=== PATIENT | female | born 1955 | race Caucasian/White ===

== ENCOUNTER 2020-10-16 06:38 | Outpatient (REF) | payer MEDICARE, SELFPAY ==
[2020-10-16 12:21] LABS: Alanine Aminotransferase 34 U/L (0-31); Anion Gap 15 (12-20); Aspartate Amino Transferase 34 U/L (5-31); Blood Urea Nitrogen 14 mg/dL (9-16); Calcium 9.5 mg/dL (8.4-10.2); Carbon Dioxide 29 mmol/L (22-29); Chloride 103 mmol/L (96-108); Cholesterol 268 mg/dL; Estimated Glomerular Filt Rate > 60; Glucose Fasting 89 mg/dL (60-99); HDL Cholesterol 53 mg/dL; LDL Cholesterol Calculated 194 mg/dl; Potassium 5.1 mmol/l (3.3-5.1); Sodium 142 mmol/L (135-145); Triglycerides 109 mg/dL
== END 2020-10-16 06:39 | disposition home or self-care (01) ==
LOC: HO.HMGCLDS 06:38
PROVIDERS: PCP Internal Medicine; Visit Provider Internal Medicine
DX: Z78.0 Asymptomatic menopausal state (principal); I10 Essential (primary) hypertension
CPT/HCPCS: 80048; 80061; 82306; 84450; 84460

== ENCOUNTER 2020-12-22 09:41 | Outpatient (REF) | payer MEDICARE, SELFPAY ==
--- NOTE | 2020-12-22 09:43 | MM_ITS ---
EXAMINATION: MM SCREENING DIGITAL BREAST TOMOSYNTHESIS, BILATERAL CLINICAL INFORMATION: Screening. Asymptomatic. The lifetime risk of breast cancer based on the Tyrer-Cuzick Model is 6%. COMPARISON: Outside mammography: 10/16/2019, 08/23/2018, 04/27/2016, 04/14/2016 ([facility]) TECHNIQUE: Digital breast tomosynthesis is performed in both the craniocaudal and mediolateral oblique views along with computer-aided detection (CAD). Synthesized 2D images are generated from the tomosynthesis. FINDINGS: There are scattered areas of fibroglandular density (ACR BI-RADS breast composition Category b). Parenchymal pattern is similar to prior studies. There is no developing density or interval mass or architectural abnormality or abnormal calcifications. The axilla and skin contours are unremarkable. Small stable asymmetric density mid outer left breast on CC view is similar to prior exams dating back to 2016. No correlate on MLO view. Small oval asymmetric density central lower right breast in MLO view also stable. MM/MM tomosynthesis screening BI IMPRESSION: No significant changes from previous outside mammography. ASSESSMENT: BI-RADS 2: Benign RECOMMENDATION: Routine annual mammography screening. This patient's information was entered into a reminder system with a target due date for their next mammogram.
== END 2020-12-22 09:42 | disposition home or self-care (01) ==
LOC: HO.MAMMO 09:41
PROVIDERS: PCP Internal Medicine; Visit Provider Internal Medicine
DX: Z12.31 Encounter for screening mammogram for malignant neoplasm of breast (principal)
CPT/HCPCS: 77063; 77067

== ENCOUNTER 2021-04-16 06:38 | Outpatient (REF) | payer MEDICARE, SELFPAY ==
[2021-04-16 11:22] LABS: MANUAL DIFF FLAG NO
[2021-04-16 11:40] LABS: Basophils Absolute Auto 0.1 X10*3/uL (0.0-0.2); Basophils Percent Auto 0.6 % (0-2); Eosinophils Absolute Auto 0.4 X10*3/uL (0.0-0.4); Eosinophils Percent Auto 4.5 % (0-4); Hemoglobin 13.8 g/dl (12.0-16.0); Imm Gran Abs Auto 0.02 X10*3/uL (0.00-0.03); Imm Gran Pct Auto 0.2 % (0.0-0.4); Lymphocytes Absolute Auto 1.9 X10*3/uL (1.2-4.9); Mean Corpuscular HGB Conc 32.1 g/dl (31.0-35.0); Mean Corpuscular Hemoglobin 30.9 pg (27.0-33.0); Mean Corpuscular Volume 96.4 fL (80-98); Mean Platelet Volume 10.8 fL (9.4-12.3); Monocytes Absolute Auto 0.8 X10*3/uL (0.1-1.2); Monocytes Percent Auto 9.1 % (2-11); Neutrophils Absolute Auto 5.2 X10*3/uL (2.0-8.3); Neutrophils Percent Auto 62.6 % (45-73); Platelet Count 313 X10*3/uL (160-400); Red Blood Count 4.46 X10*6/uL (4.20-5.50); Red Cell Distribution Width 11.9 % (11.0-16.0); White Blood Count 8.3 X10*3/uL (4.8-10.8)
[2021-04-16 12:23] LABS: Alanine Aminotransferase 17 U/L (0-31); Anion Gap 13 (12-20); Aspartate Amino Transferase 21 U/L (5-31); Blood Urea Nitrogen 16 mg/dL (9-16); Calcium 9.7 mg/dL (8.4-10.2); Carbon Dioxide 26 mmol/L (22-29); Chloride 109 mmol/L (96-108); Cholesterol 204 mg/dL; Estimated Glomerular Filt Rate > 60; Glucose Fasting 84 mg/dL (60-99); HDL Cholesterol 58 mg/dL; LDL Cholesterol Calculated 129 mg/dl; Potassium 5.1 mmol/L (3.3-5.1); Sodium 143 mmol/L (135-145); Triglycerides 89 mg/dL
[2021-04-16 12:46] LABS: TSH reflex Free T4 4.05 uIU/mL (0.32-4.0); Vitamin D 25-OH Total 61.9 ng/mL (>30)
[2021-04-16 14:28] LABS: Free T4 (Free Thyroxine) 0.88 ng/dL (0.71-1.85)
== END 2021-04-16 06:39 | disposition home or self-care (01) ==
LOC: HO.HMGCLDS 06:38
PROVIDERS: PCP Internal Medicine; Visit Provider Internal Medicine
DX: E78.5 Hyperlipidemia, unspecified (principal); I10 Essential (primary) hypertension; R00.2 Palpitations; R42 Dizziness and giddiness; Z78.0 Asymptomatic menopausal state
CPT/HCPCS: 36415; 80048; 80061; 82306; 84439; 84443; 84450; 84460; 85025

== ENCOUNTER 2021-10-01 07:07 | Outpatient (REF) | payer MEDICARE, SELFPAY ==
[2021-10-01 12:08] LABS: Alanine Aminotransferase 25 U/L (0-31); Aspartate Amino Transferase 30 U/L (5-31); Cholesterol 181 mg/dL; HDL Cholesterol 54 mg/dL; LDL Cholesterol Calculated 113 mg/dl; Triglycerides 73 mg/dL
== END 2021-10-01 07:08 | disposition home or self-care (01) ==
LOC: HO.HMGCLDS 07:07
PROVIDERS: PCP Internal Medicine; Visit Provider Internal Medicine
DX: E78.5 Hyperlipidemia, unspecified (principal); I10 Essential (primary) hypertension
CPT/HCPCS: 36415; 80061; 84450; 84460

== ENCOUNTER 2022-02-08 08:38 | Outpatient (REF) | payer MEDICARE, SELFPAY ==
--- NOTE | ~2022-02-08 | MM_ITS ---
EXAMINATION: MM SCREENING DIGITAL BREAST TOMOSYNTHESIS, BILATERAL CLINICAL INFORMATION: Screening. Asymptomatic. The lifetime risk of breast cancer based on the Tyrer-Cuzick Model is 6%. COMPARISON: Mammography: 12/22/2020 and outside exams 10/16/2019, 08/23/2018, 04/14/2016 ([facility]). TECHNIQUE: Digital breast tomosynthesis is performed in both the craniocaudal and mediolateral oblique views along with computer-aided detection (CAD). Synthesized 2D images are generated from the tomosynthesis. FINDINGS: There are scattered areas of fibroglandular density (ACR BI-RADS breast composition Category b). There are no significant masses, abnormal calcifications, or other abnormalities. Scattered bilateral asymmetries are stable. There are scattered shifting fibroglandular parenchymal densities overall similar to prior studies. No developing density or interval architectural abnormality. MM/MM tomosynthesis screening BI IMPRESSION: No significant changes from prior exams. ASSESSMENT: BI-RADS 2: Benign RECOMMENDATION: Routine annual mammography screening. This patient's information was entered into a reminder system with a target due date for their next mammogram.
== END 2022-02-08 08:39 | disposition home or self-care (01) ==
LOC: HO.MAMMO 08:38
PROVIDERS: Visit Provider Internal Medicine
DX: Z12.31 Encounter for screening mammogram for malignant neoplasm of breast (principal)
CPT/HCPCS: 77063; 77067

== ENCOUNTER 2022-04-01 06:37 | Outpatient (REF) | payer MEDICARE, SELFPAY ==
[2022-04-01 11:10] LABS: MANUAL DIFF FLAG NO
[2022-04-01 11:20] LABS: Basophils Absolute Auto 0.1 X10*3/uL (0.0-0.2); Basophils Percent Auto 0.7 % (0-2); Eosinophils Absolute Auto 0.3 X10*3/uL (0.0-0.4); Eosinophils Percent Auto 4.2 % (0-4); Hemoglobin 13.9 g/dl (12.0-16.0); Imm Gran Abs Auto 0.02 X10*3/uL (0.00-0.03); Imm Gran Pct Auto 0.3 % (0.0-0.4); Lymphocytes Absolute Auto 1.9 X10*3/uL (1.2-4.9); Lymphocytes Percent Auto 25.5 % (20-40); Mean Corpuscular HGB Conc 32.3 g/dl (31.0-35.0); Mean Corpuscular Volume 95.8 fL (80.0-98.0); Mean Platelet Volume 10.7 fL (9.4-12.3); Monocytes Absolute Auto 0.7 X10*3/uL (0.1-1.2); Monocytes Percent Auto 9.5 % (2-11); Neutrophils Absolute Auto 4.5 x10*3/uL (2.0-8.3); Neutrophils Percent Auto 59.8 % (45-73); Platelet Count 341 X10*3/uL (160-400); Red Blood Count 4.49 X10*6/uL (4.20-5.50); Red Cell Distribution Width 11.8 % (11.0-16.0); White Blood Count 7.5 X10*3/uL (4.8-10.8)
[2022-04-01 12:03] LABS: Vitamin D 25-OH Total 57.4 ng/mL (>30)
[2022-04-01 12:07] LABS: Alanine Aminotransferase 13 U/L (0-31); Anion Gap 12 (12-20); Aspartate Amino Transferase 19 U/L (5-31); Blood Urea Nitrogen 14 mg/dL (9-16); Calcium 9.8 mg/dL (8.4-10.2); Carbon Dioxide 27 mmol/L (22-29); Chloride 106 mmol/L (96-108); Cholesterol 187 mg/dL; Estimated Glomerular Filt Rate > 60; Glucose Fasting 91 mg/dL (60-99); HDL Cholesterol 53 mg/dL; LDL Cholesterol Calculated 118 mg/dl; Potassium 4.6 mmol/L (3.3-5.1); Sodium 140 mmol/L (135-145); Triglycerides 83 mg/dL
== END 2022-04-01 06:38 | disposition home or self-care (01) ==
LOC: HO.HMGCLDS 06:37
PROVIDERS: Visit Provider Internal Medicine
DX: Z00.01 Encounter for general adult medical examination with abnormal findings (principal); I10 Essential (primary) hypertension; N95.9 Unspecified menopausal and perimenopausal disorder
CPT/HCPCS: 36415; 80048; 80061; 82306; 84450; 84460; 85025

== ENCOUNTER 2023-02-09 09:08 | Outpatient (REF) | payer MEDICARE, SELFPAY ==
--- NOTE | ~2023-02-09 | MM_ITS ---
EXAMINATION: MM SCREENING DIGITAL BREAST TOMOSYNTHESIS, BILATERAL CLINICAL INFORMATION: Screening. Asymptomatic. The lifetime risk of breast cancer based on the Tyrer-Cuzick Model is 6.3%. COMPARISON: Mammography: February 08, 2022 and studies dating back to April 14, 2016 TECHNIQUE: Digital breast tomosynthesis is performed in both the craniocaudal and mediolateral oblique views along with computer-aided detection (CAD). Synthesized 2D images are generated from the tomosynthesis. FINDINGS: There are scattered areas of fibroglandular density (ACR BI-RADS breast composition Category b). There are no new significant masses, abnormal calcifications, or other abnormalities. There are a few bilateral stable densities. MM/MM tomosynthesis screening BI IMPRESSION: No significant changes from prior exam. ASSESSMENT: BI-RADS 2: Benign RECOMMENDATION: Routine annual mammography screening. This patient's information was entered into a reminder system with a target due date for their next mammogram.
--- NOTE | ~2023-02-09 | MM_ITS ---
EXAMINATION: BONE DENSITOMETRY CLINICAL INDICATION: Asymptomatic menopausal state. COMPARISON: None (current study represents initial baseline exam). TECHNIQUE: Using a Neonode DXA System (software version: 13.1) manufactured by [employer], dual-energy x-ray absorptiometry was performed of the lumbar spine and left hip. The images are of good technical quality. Summary results are attached. FINDINGS: AP SPINE L1-L4 (excluding L3): The data of L1-L4 has been changed to exclude the L3 vertebral body, because degenerative changes at this level may cause overestimation of lumbar spine density. BMD 1.179 g/cm2, Z-score 1.4, T-score 0.1, normal. LEFT FEMUR, NECK: BMD 0.691 g/cm2, Z-score -1.1, T-score -2.5, osteoporosis. LEFT FEMUR, TOTAL: BMD 0.673 g/cm2, Z-score -1.5, T-score -2.7, osteoporosis. IDENTIFIED RISK FACTORS: Menopause. HISTORY OF FRACTURE: None listed. MEDICATIONS: Calcium. Vitamin D. MM/XR DEXA axial skeleton IMPRESSION: 1. DIAGNOSIS: Osteoporosis based on the lowest T-score value of -2.7 in the total femur applying World Health Organization criteria. 2. 10-YEAR FRACTURE RISK PREDICTION, FRAX: According to the guidelines, FRAX calculation should only be performed on patients in the osteopenia bone density category. Therefore, FRAX was not performed on this patient.? 3. Treatment Recommendations: NOF guidelines recommend consideration for treatment in postmenopausal women and men age 50 and older presenting with the following: -A hip or vertebral (clinical or morphometric) fracture. -T-score less than or equal to -2.5 at the femoral neck or spine after appropriate evaluation to exclude secondary causes. -Low bone mass at the hip or spine and a 10-year fracture probability by FRAX of greater than or equal to 3% for hip fracture or greater than or equal to 20% for major osteoporotic fracture based on the [place] adapted WHO algorithm. 4. Other Recommendations: All treatment decisions require clinical judgment and consideration of individual patient factors, including patient preferences, comorbidities, previous drug use, risk factors not captured in the FRAX model (e.g. frailty, falls, vitamin D deficiency, increased bone turnover, interval significant decline in bone density) and possible under or overestimation of fracture risk by FRAX. Additional medical evaluation for secondary cause of low bone mineral density may be appropriate. FUTURE SCAN RECOMMENDATION: People with diagnosed cases of osteoporosis or at high risk for fracture should have regular bone mineral density tests. For patients eligible for Medicare, routine testing is allowed once every 2 years. The testing frequency can be increased to one year for patients who have rapidly progressing disease, those who are receiving or discontinuing medical therapy to restore bone mass, or have additional risk factors.
== END 2023-02-09 09:09 | disposition home or self-care (01) ==
LOC: HO.MAMMO 09:08
PROVIDERS: PCP Internal Medicine; Visit Provider Internal Medicine
DX: Z12.31 Encounter for screening mammogram for malignant neoplasm of breast (principal); Z13.820 Encounter for screening for osteoporosis; Z78.0 Asymptomatic menopausal state
CPT/HCPCS: 77063; 77067; 77080

== ENCOUNTER 2023-04-14 06:49 | Outpatient (REF) | payer MEDICARE, SELFPAY ==
[2023-04-14 12:17] LABS: Alanine Aminotransferase 16 U/L (0-31); Anion Gap 11 (12-20); Aspartate Amino Transferase 20 U/L (5-31); Blood Urea Nitrogen 19 mg/dL (9-16); Calcium 9.9 mg/dL (8.4-10.2); Carbon Dioxide 28 mmol/L (22-29); Chloride 107 mmol/L (96-108); Cholesterol 208 mg/dL; Estimated Glomerular Filt Rate > 60; Glucose Fasting 92 mg/dL (60-99); HDL Cholesterol 55 mg/dL; LDL Cholesterol Calculated 132 mg/dl; Potassium 5.4 mmol/L (3.3-5.1); Sodium 141 mmol/L (135-145); Triglycerides 105 mg/dL
[2023-04-14 12:41] LABS: Vitamin D 25-OH Total 76.8 ng/mL (>30)
== END 2023-04-14 06:50 | disposition home or self-care (01) ==
LOC: HO.HMGCLDS 06:49
PROVIDERS: PCP Internal Medicine; Visit Provider Internal Medicine
DX: Z00.01 Encounter for general adult medical examination with abnormal findings (principal); E78.5 Hyperlipidemia, unspecified; I10 Essential (primary) hypertension; M81.0 Age-related osteoporosis without current pathological fracture; Z78.0 Asymptomatic menopausal state
CPT/HCPCS: 36415; 80048; 80061; 82306; 84450; 84460

== ENCOUNTER 2023-05-24 09:01 | Outpatient (REF) | payer MEDICARE, SELFPAY ==
[2023-05-24 11:36] LABS: Potassium 4.7 mmol/L (3.3-5.1)
== END 2023-05-24 09:02 | disposition home or self-care (01) ==
LOC: HO.HMGCLDS 09:01
PROVIDERS: PCP Internal Medicine; Visit Provider Internal Medicine
DX: E87.5 Hyperkalemia (principal)
CPT/HCPCS: 36415; 84132

== ENCOUNTER 2024-02-28 09:37 | Outpatient (REF) | payer MEDICARE, SELFPAY | END 2024-02-28 09:38 | disposition home or self-care (01) | LOC: HO.MAMMO 09:37 | PROVIDERS: PCP Internal Medicine; Visit Provider Internal Medicine | DX: Z12.31 Encounter for screening mammogram for malignant neoplasm of breast (principal) | CPT/HCPCS: 77063; 77067 ==

== ENCOUNTER → 2024-02-28 09:45 | Outpatient (BNV) | payer MEDICARE, SELFPAY | PROVIDERS: PCP Internal Medicine; Visit Provider Radiology Diagnostic Radiology | DX: Z12.31 Encounter for screening mammogram for malignant neoplasm of breast (principal) | CPT/HCPCS: 77063; 77067 ==

== ENCOUNTER 2024-09-25 07:26 | Outpatient (REF) | payer MEDICARE, SELFPAY ==
[2024-09-25 12:47] LABS: Alanine Aminotransferase 22 U/L (0-31); Anion Gap 16 (12-20); Aspartate Amino Transferase 35 U/L (5-31); Blood Urea Nitrogen 15 mg/dL (9-16); Calcium 9.4 mg/dL (8.4-10.2); Carbon Dioxide 20 mmol/L (22-29); Chloride 105 mmol/L (96-108); Cholesterol 192 mg/dL (<200); Estimated Glomerular Filt Rate > 60; Glucose Fasting 97 mg/dL (60-99); HDL Cholesterol 64 mg/dL (>40); LDL Cholesterol Calculated 105 mg/dL (<100); Potassium 4.9 mmol/L (3.3-5.1); Sodium 136 mmol/L (135-145); Triglycerides 115 mg/dL (<150)
[2024-09-25 13:11] LABS: Vitamin D 25-OH Total 70.6 ng/mL (>30)
== END 2024-09-25 07:27 | disposition home or self-care (01) ==
LOC: HO.HMGCLDS 07:26
PROVIDERS: PCP Internal Medicine; Visit Provider Internal Medicine
DX: M81.0 Age-related osteoporosis without current pathological fracture (principal); E78.5 Hyperlipidemia, unspecified; Z13.1 Encounter for screening for diabetes mellitus
CPT/HCPCS: 36415; 80048; 80061; 82306; 84450; 84460

== ENCOUNTER 2024-10-02 09:30 | Outpatient (AMB) | payer MEDICARE, SELFPAY ==
--- NOTE | 2024-10-02 09:36 | A.OFFPC_ITS ---
Vital Signs 10/02/24 10:01 Height 5 ft 3 in Weight 157 lb BMI 27.8 BP 150/92 H Blood Pressure Location Rt brachial Position Sitting Pulse 67 Pulse Source Pulse Oximeter Pulse Oximetry (%) 96 Oxygen Delivery Method Room Air Intake Visit Reasons: ANNUAL Intake Note: Pt is here today for her PE: Last mammogram 02/28/24, bone density scan 02/09/23,cologuard 01/05/23 Allergies No Known Allergies Allergy (Verified 10/02/24 10:21) Medication List - Last Reconciled 10/02/24 by Rani Ribeiro MD [id number] no-dz-mk-unit 1 tab PO BID famotidine 10 mg PO DAILY PRN fluticasone propion-salmeterol 100-50 mcg/dose (Wixela Inhub) 1 inh inhalation DAILY 3 months garlic 5 mg PO DAILY magnesium 250 mg PO DAILY melatonin mg PO wxrcftgq-fmr-zpth-FA-vit K-lut 8 mg iron-400 mcg-50 mcg (Centrum Silver Women) 1 tab PO DAILY rosuvastatin 5 mg PO DAILY Tobacco use date assessed: 10/02/24 Fall risk assessment: No Falls in past year Last assessed Fall Risk: 10/02/24 Dental Screening Dental Screen Date: 10/02/24 Did you have a dental visit in the last 12 months?: Yes Did you have a dental problem in the last 6 months where you did not have access to dental care?: No Was dental information given to patient?: Patient has dentist HPI ANNUAL HPI Details 69-year-old lady white coat syndrome wit hout diagnosis of hypertension, osteoporosis, dyslipidemia, mild intermittent asthma, here today for physical exam. She has been checking her blood pressure at home and it has been running always below 130/80. She has been attending the [facility] exercise for osteoporosis prevention 4 times a weeks, uses 6 lb arm weights and 2 lb weights in the legs, declined to start alendronate when offered on last visit. Has been compliant with her medications and has been trying to follow recommended diet. Up-to-date with her screening mammogram done earlier this year and had a bone density scan done last year. She had a Cologuard done last year which came back negative. Currently sees Dermatology yearly for skin cancer screening. 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 Asthma stable and controlled on present treatment [facility] Medical History COVID-19 vaccination declined White coat syndrome without diagnosis of hypertension Osteoporosis Intermittent palpitations Intermittent lightheadedness Impacted cerumen of left ear Dyslipidemia Mild intermittent asthma DUB (dysfunctional uterine bleeding) Varicose veins of right lower extremity Umbilical hernia Normal colonoscopy Menopause Basal cell carcinoma of helix of right ear H/O dysplastic nevus Surgical History H/O colonoscopy H/O hernia repair History of appendectomy History of endometrial ablation H/O varicose vein stripping H/O section Family History Mother No problems noted. Father Substance use disorder Daughter Diabetes Social History Housing: House Alcohol intake: current Patient Tobacco Use Status: Former Tobacco user e-Cigarette/Vaping Use: Never Used Current occupational status: retired Cognitive needs: No Hearing needs: No Vision needs: Yes Questionnaire PHQ-9 Over the last 2 weeks, how often have you been bothered by any of the following problems? 1. Little interest or pleasure in doing things: not at all 2. Feeling down, depressed, or hopeless: not at all 3. Trouble falling or staying asleep, or sleeping too much: not at all 4. Feeling tired or having little energy: not at all 5. Poor appetite or overeating: not at all 6. Feeling bad about yourself - or that you are a failure or have let yourself or your family down: not at all 7. Trouble concentrating on things, such as reading the newspaper or watching television: not at all 8. Moving or speaking so slowly that other people could have noticed. Or the opposite - being so fidgety or restless that you have been moving around a lot more than usual: not at all 9. Thoughts that you would be better off or of hurting yourself in some way: not at all Total score: 0 Depression Screening Interpretation: Negative Depression Screening Done: Yes 82551 - PHQ-9 Billing: Yes Source: Developed by Drs. Goran Bryan, Crissy Diggs, Golden Matthews and colleagues, with an educational em from [employer]. Thrive Questionnaire Date Thrive assessed: 10/02/24 I am a: Patient What is your living situation today?: I choose not to answer this question Within the past 12 months, did the food you bought not last and you didn't have the money to get more?: I choose not to answer this question Within the past 12 months, did you worry whether your food would run out before you got money to buy more?: I choose not to answer this question Do you have trouble paying for medicines?: I choose not to answer this question Do you have trouble getting transportation to medical appointments?: I choose not to answer this question Do you have trouble paying your heating and electricity bill?: I choose not to answer this question Do you have trouble taking care of your child, family member or friend?: I choose not to answer this question Do you have trouble with day-to-day activities such as bathing, preparing meals, shopping, managing finances, etc.?: I choose not to answer this question Are you currently unemployed and looking for a job?: I choose not to answer this question Are you interested in more education?: I choose not to answer this question Please select the resources that you would like help with: None Currently or been in a relationship where the following occur: I choose not to answer THRIVE Score: 0 AUDIT C Alcohol Use Questionnaire (AUDIT-C) 1. How often do you have a drink containing alcohol?: 2-3 times a week 2. How many drinks containing alcohol do you have on a typical day when you are drinking?: 3 or 4 3. How often do you have six or more drinks on one occasion?: Never Total Score: 4 KATHERINE-7 AMB Questionnaire KATHERINE-7 Date KATHERINE - 7 assessed: 10/02/24 Feeling nervous, anxious, or on edge: 0 = Not at all Not being able to stop or control worryin = Not at all Worrying too much about different things: 0 = Not at all Trouble relaxin = Not at all Being so restless that it is hard to sit still: 0 = Not at all Becoming easily annoyed or irritable: 0 = Not at all Feeling afraid as if something awful might happen: 0 = Not at all Total KATHERINE-7 score (0-4 normal; 5-9 mild; 10-14 moderate; 15-21 severe): 0 Source: Developed by Drs. Goran Bryan, Crissy Diggs, Golden Matthews and colleagues, with an educational em from [employer]. KATHERINE-7 Assessment Billing KATHERINE-7 Assessment Tool: KATHERINE-7 Assessment 68057 Review of Systems Const Denies body aches, Denies fatigue, Denies fever(s), Denies headache(s) and Denies weakness Eyes Details: Goes to [facility] in [place] Denies change in vision and Reports requires corrective lenses ENT Denies dizziness, Denies headache(s), Denies nasal congestion, Denies nasal discharge, Denies post nasal drip and Denies sore throat Card Denies chest pain, Denies lightheadedness, Denies palpitations and Denies dyspnea Resp Denies chest congestion, Denies cough, Denies dyspnea and Denies wheezing GI Denies abdominal pain, Denies change in bowel habits and Denies heartburn Denies urinary frequency, Denies dysuria and Denies urinary urgency Musc Denies back pain, Denies myalgias, Denies arthralgias, Denies joint swelling, Denies muscle weakness and Denies stiffness Skin/Breast Denies breast pain, Denies breast mass and Denies rash Neuro Denies dizziness, Denies headache(s) and Denies weakness Psych Denies abnormal sleep pattern, Denies anxiety, Denies change in appetite and Denies depression Endo Denies fatigue, Denies polydipsia, Denies polyuria and Denies palpitations Murtaza/Lymph Denies easy bruising Aller/Immun Denies seasonal rhinorrhea and Denies wheezing Physical exam (Primary Care) Vital Signs: Last Vital Signs Pulse 67 10/02/24 10:01 BP 150/92 H 10/02/24 10:01 Pulse Ox 96 10/02/24 10:01 Oxygen Delivery Method Room Air 10/02/24 10:01 BMI result Body Mass Index 27.8 Tobacco/Smoking Status: Tobacco use Status Tobacco use date assessed 10/02/24 10/02/24 10:08 Patient Tobacco Use Status Former Tobacco user 10/02/24 09:38 e-Cigarette/Vaping Use Never Used 10/02/24 09:38 PHQ-9: PHQ-9 Score PHQ-9: Total score 0 10/03/24 05:17 Depression Screening Interpretation: Negative Thrive Assessment: Date of Thrive Assessment Date Thrive assessed 10/02/24 10/02/24 10:17 Currently or been in a relationship where the following occur: I choose not to answer Advance Care Planning discussion: Completed/Scanned Date of discussion: 10/02/24 Who was present: Patient Forms completed: Health Care Proxy Time spent: 16-45 minutes Actual minutes spent: 2 Const Other: Alert oriented x3, no acute distress noted, ambulatory with normal gait Orientation/consciousness: patient oriented x3 HENMT Ears: hearing grossly normal bilaterally, external ears normal, TM's normal bilaterally and EAC's normal General nose exam: Normal external nose present and No nasal discharge present Face and sinus: Yes face symmetric Mouth: Normal oral and palatal mucosa present and moist mucous membranes Eyes General: appearance normal, both eyes and all related structures Conjunctivae: conjunctivae normal Pupils: Equal, round and reactive pupils present EOM: EOMs intact bilaterally Neck Other: Supple, no lymphadenopathy, thyroid gland nonpalpable Chest Breast/axilla palpation: normal palpation of the breasts Resp Auscultation: clear to auscultation bilaterally Cardio Other: S1-S2 present regular rate and rhythm GI Other: Normal bowel sounds, soft, nontender, no mass palpated General: Yes deferred Back/Spine/Pelvis Back: No back tenderness Skin General skin exam: no rashes or lesions noted Neuro General: patient oriented x3, gait normal, moves all extremities, Normal light touch and pain sensation, no focal motor deficits and CN's II-XI intact bilaterally Cranial nerves: Yes Equal, round and reactive pupils present Extrem General: Yes full ROM, Yes no joint enlargement, Yes no clubbing, cyanosis or edema and Yes normal gait Psych Appearance: grossly normal and well kempt Mental Status: mental status grossly normal Speech and movement: Normal speech and movement present Affect: normal affect Attitude: cooperative Thought process: Normal thought process present Thought content: Normal thought content present Results Reviewed Results Reviewed: Name: Natalia Meeks Age/Sex: 69/F : 1955 Unit#: [id number] Attend Dr: Rani Ribiero MD Re09/25/24 Status: DEP REF Location: [facility] Disch: SPEC : [id number] [place]: 09/25/24 STATUS: COMP REQ : [id number] RECD: 09/25/24-[address]: Rani Ribeiro MD COMP: 09/25/24 ENTERED: 09/25/[address]: ORDERED: Met Prof Fast, AST, ALT, Lipid Panel, Vitamin D 25-OH Test Result Flag Reference Sodium 136 135-145 mmol/L Potassium 4.9 3.3-5.1 mmol/L Slight Hemolysis.Interpret result with caution. CL 105 96-108 mmol/L CO2 20 L 22-29 mmol/L Gap 16 12-20 BUN 15 9-16 mg/dL Creat 0.85 0.5-1.4 mg/dL EGFR > 60 NOTE: For -[place] individuals, multiply the result by 1.210. Chronic Kidney Disease: Estimated GFR < 60 mL/min/1.73m2 Severe Kidney Disease: Estimated GFR < 15 mL/min/1.73m2 FBS 97 60-99 mg/dL CA 9.4 8.4-10.2 mg/dL AST (GOT) 35 H 5-31 U/L Slight Hemolysis.Interpret result with caution. ALT (GPT) 22 0-31 U/L Triglyceride 115 <150 mg/dL Desirable Triglyceride: less than 150 mg/dL Borderline High Triglyceride 150-199 mg/dL High Triglyceride: 200-499 mg/dL Very High Triglyceride: greater than or equal to 5OO mg/dL Cholesterol 192 <200 mg/dL Desirable Cholesterol: less than 200 mg/dL Borderline High Cholesterol: 200-239 mg/dL High Cholesterol: greater than 239 mg/dL LDL Calculated 105 H <100 mg/dL Desirable LDL: less than 100 mg/dL Near Optimal/Above Optimal LDL: 110-129 mg/dL Borderline High LDL: 130-159 mg/dL High LDL: 160-189 mg/dL Very High LDL: greater than or equal to 190 mg/dL HDL 64 >40 mg/dL Desirable HDL: greater than 40 mg/dL Note: This HDL assay may give artificially low results in patients with liver disease. Vit D 25-OH Tot 70.6 >30 ng/mL Health Based Reference Values* < 20 ng/mL Deficient 20-30 ng/mL Insufficient > 30 ng/mL Sufficient Coding Level of Care Code Est Pt Prev Care >65y(18040) Diagnoses Annual visit for general adult medical examination with abnormal findings Z00.01 Mild intermittent asthma without complication J45.20 Asthma complication type: uncomplicated Dyslipidemia E78.5 Age-related osteoporosis without current pathological fracture M81.0 Osteoporosis type: age-related Presence of current pathological fracture: without current pathological fracture White coat syndrome without diagnosis of hypertension R03.0 COVID-19 vaccination declined Z28.21 Advanced directives, counseling/discussion Z71.89 Additional Codes Vital Signs *Quality* - Advance Care Planning discussion: Completed/Scanned ([id number]) Vital Signs *Quality* - Time spent: 16-45 minutes ([id number]) PHQ-9 - 80366 - PHQ-9 Billing: Yes ([id number]) KATHERINE-7 Assessment Billing - KATHERINE-7 Assessment Tool: KATHERINE-7 Assessment 46376 ([id number]) Assessment & Plan Assessment & Plan (1) Annual visit for general adult medical examination with abnormal findings: Code(s): Z00.01 - Encounter for general adult medical examination with abnormal findings Plan: Reviewed recent fasting lab results. Continue with regular dental visit every 6 months and regular eye exams, at least every 2 years. Take adequate calcium in diet and vitamin-D 3 at 2000 IU per cap once a day, in addition to weight- bearing exercises to help maintain good muscle tone and weight control. Instructed to do self-breast exam, and continue with yearly mammogram. Had a Cologuard test done last year which came back negative. Repeat again in 2025. Reminded to get her flu shot, up-to-date with pneumonia vaccination, declined COVID booster (2) Mild intermittent asthma: Code(s): J45.20 - Mild intermittent asthma, uncomplicated Category: Medical Qualifiers: Asthma complication type: uncomplicated Qualified Code(s): J45.20 - Mild intermittent asthma, uncomplicated Plan: Controlled on Wixela, has not needed to use her albuterol inhaler at all. Up-to-date with her pneumococcal vaccination, reminded to get her flu shot does not want to get COVID boosters (3) Dyslipidemia: Code(s): E78.5 - Hyperlipidemia, unspecified Category: Medical Plan: Reviewed recent fasting lipid profile with patient with levels normal limits . Continue rosuvastatin 5 mg once a day , in addition to adherence to low- cholesterol diet and regular exercise, at least 30 minutes 3 to 4 times a week. Advised patient to make healthy food choices, eat more fruits, vegetables, whole grains, wild caught fish and low-fat dairy. Limit amount of meat and fried or fatty food products, as well as processed foods and fast foods. Follow-up scheduled with repeat fasting lipid panel in months. (4) Osteoporosis: Comment: declined alendronate Code(s): M81.0 - Age-related osteoporosis without current pathological fracture Category: Medical Qualifiers: Osteoporosis type: age-related Presence of current pathological fracture: without current pathological fracture Qualified Code(s): M81.0 - Age- related osteoporosis without current pathological fracture Plan: Repeat another DEXA scan in 03/16/2025 together with screening mammogram. Continue calcium and vitamin-D supplements , continue with regular weight- bearing exercise. (5) White coat syndrome without diagnosis of hypertension: Comment: seen by Dr Renee Code(s): R03.0 - Elevated blood-pressure reading, without diagnosis of hypertension Category: Medical Plan: Continue checking blood pressure at home, goal blood pressure less than 130/80. (6) COVID-19 vaccination declined: Comment: Due to development of rash after the last dose of COVID vaccine Code(s): Z28.21 - Immunization not carried out because of patient refusal Category: Medical Plan: Declined COVID vaccine booster (7) Advanced directives, counseling/discussion: Code(s): Z71.89 - Other specified counseling Plan: Initiated the conversation about Advanced Directives. Advanced Directives help patients prepare for current and future decisions about their medical treatment and place of care. Discussed with patient that it is a process where a patients current condition and prognosis are reviewed, their wishes for information regarding their illness are elicited, and likely medical dilemmas are presented and options discussed. Healthcare proxy form completed today. The form can be amended as needed, reviewed yearly and make changes as needed Orders: Orders MM tomosynthesis screening BI 02/28/25 Z12.31 - Encounter for screening mammogram for malignant neoplasm of breast Alanine Aminotransferase 09/27/25 E78.5 - Hyperlipidemia, unspecified, J45.20 - Mild intermittent asthma, uncomplicated, M81.0 - Age-related osteoporosis without current pathological fracture, R03.0 - Elevated blood-pressure reading, without diagnosis of hypertension, Z28.21 - Immunization not carried out because of patient refusal, Z78.0 - Asymptomatic menopausal state XR DEXA axial skeleton 02/28/25 M81.0 - Age-related osteoporosis without current pathological fracture, Z78.0 - Asymptomatic menopausal state Lipid Panel 09/27/25 E78.5 - Hyperlipidemia, unspecified, J45.20 - Mild intermittent asthma, uncomplicated, M81.0 - Age-related osteoporosis without current pathological fracture, R03.0 - Elevated blood-pressure reading, without diagnosis of hypertension, Z28.21 - Immunization not carried out because of patient refusal, Z78.0 - Asymptomatic menopausal state Aspartate Amino Transferase 09/27/25 E78.5 - Hyperlipidemia, unspecified, J45.20 - Mild intermittent asthma, uncomplicated, M81.0 - Age-related osteoporosis without current pathological fracture, R03.0 - Elevated blood- pressure reading, without diagnosis of hypertension, Z28.21 - Immunization not carried out because of patient refusal, Z78.0 - Asymptomatic menopausal state Basic Metabolic Panel Fasting 09/27/25 E78.5 - Hyperlipidemia, unspecified, J45.20 - Mild intermittent asthma, uncomplicated, M81.0 - Age-related osteoporosis without current pathological fracture, R03.0 - Elevated blood- pressure reading, without diagnosis of hypertension, Z28.21 - Immunization not carried out because of patient refusal, Z78.0 - Asymptomatic menopausal state Vitamin D 25-OH Total 09/27/25 E78.5 - Hyperlipidemia, unspecified, J45.20 - Mild intermittent asthma, uncomplicated, M81.0 - Age-related osteoporosis without current pathological fracture, R03.0 - Elevated blood-pressure reading, without diagnosis of hypertension, Z28.21 - Immunization not carried out because of patient refusal, Z78.0 - Asymptomatic menopausal state Medications: Refilled fluticasone propion-salmeterol 100-50 mcg/dose (Wixela Inhub) 1 inh inhalation DAILY 3 months 3 inhalers 2RF J45.20 - Mild intermittent asthma, uncomplicated Discontinued albuterol sulfate 90 mcg/actuation (ProAir HFA) Discontinued Reason: Patient no longer taking 2 puffs inhalation Q6H PRN 8.5 grams 1RF shortness of breath or wheezing J45.20 - Mild intermittent asthma, uncomplicated
[2024-10-02 10:01] VITALS: BP 150/92; PULSE 67; O2SAT 96; BMI 27.8
== END 2024-10-02 11:03 | disposition home or self-care (01) ==
PROVIDERS: PCP Internal Medicine; Visit Provider Internal Medicine
DX: Z00.01 Encounter for general adult medical examination with abnormal findings (principal); J45.20 Mild intermittent asthma, uncomplicated; E78.5 Hyperlipidemia, unspecified; M81.0 Age-related osteoporosis without current pathological fracture; R03.0 Elevated blood-pressure reading, without diagnosis of hypertension; Z28.21 Immunization not carried out because of patient refusal; Z71.89 Other specified counseling; Z00.00 Encounter for general adult medical examination without abnormal findings

== ENCOUNTER → 2024-10-02 09:30 | Outpatient (BNVA) | payer MEDICARE, SELFPAY | PROVIDERS: PCP Internal Medicine; Visit Provider Internal Medicine | DX: Z00.01 Encounter for general adult medical examination with abnormal findings (principal); J45.20 Mild intermittent asthma, uncomplicated; E78.5 Hyperlipidemia, unspecified; M81.0 Age-related osteoporosis without current pathological fracture; R03.0 Elevated blood-pressure reading, without diagnosis of hypertension; Z28.21 Immunization not carried out because of patient refusal; Z71.89 Other specified counseling | CPT/HCPCS: 96127; 99397; 99497 ==

== ENCOUNTER 2025-03-06 08:49 | Outpatient (REF) | payer MEDICARE, SELFPAY ==
--- NOTE | ~2025-03-06 | MM_ITS ---
EXAMINATION: DXA BONE DENSITY AXIAL HISTORY: Z12.31 - Encounter for screening mammogram for malignant neoplasm of breast TECHNIQUE: [employer] Dual energy absorptiometry (DEXA) of the lumbar spine, total left hip, and femoral neck was performed. COMPARISON: Comparison is made with the prior examination dated 02/09/2023. FINDINGS: The bone mineral density of the lumbar spine is 1.226 with a T-score of 0.4, and a Z-score of 1.9. This is indicative of normal bone mineral density. This represents a BMD change of 0.2% compared to the prior exam. This is not statistically significant. The bone mineral density of the left total hip is 0.889 with a T-score of -0.9, and a Z-score of 0.4. This is indicative of normal bone mineral density. This represents a BMD change of 32.1% compared to the prior exam. This is statistically significant. The bone mineral density of the left femoral neck is 0.943 with a T-score of -0.7, and a Z-score of 0.9. This is indicative of normal bone mineral density. This represents a BMD change of 36.5% compared to the prior exam. MM/XR DEXA axial skeleton IMPRESSION: Based on bone mineral density, and according to World Health Organization (WHO) criteria, the diagnosis is consistent with normal bone mineral density. All bone density values are in grams per centimeter squared (g/cm2). Statistically, 68% of repeat scans fall within 1 SD (+/- 0.010 g/cm2 for AP spine L1-L4) and 1 SD (+/- 0.012 g/cm2 for femur total) FRAX is a trademark of the [employer]'s [place] [facility] [employer], a World Health Organization (WHO) Collaborating Center. Electronically signed by: Goran Eason MD 03/06/2025 01:54 PM EDT
--- OUTSIDE RECORDS SUMMARY | 2025-03-06 09:15 | XMS_ITS | Continuity of Care Document ---
Author Organization [facility] [address] [place] [address] Phone [phone] Social History Type Date Description Comments Sex Unknown Medical Devices Description No Information Available Encounters Description No Information Available Assessments Description No Information Available Plan of Treatment No Information Available Functional Status Description No Information Available Mental Status Description No Information Available Referrals Description No Information Available
== END 2025-03-06 08:50 | disposition home or self-care (01) ==
LOC: HO.MAMMO 08:49
PROVIDERS: PCP Internal Medicine; Visit Provider Internal Medicine
DX: Z12.31 Encounter for screening mammogram for malignant neoplasm of breast (principal); M81.0 Age-related osteoporosis without current pathological fracture; Z78.0 Asymptomatic menopausal state
CPT/HCPCS: 77063; 77067; 77080

== ENCOUNTER → 2025-03-06 09:00 | Outpatient (BNV) | payer MEDICARE, SELFPAY | PROVIDERS: PCP Internal Medicine; Visit Provider Radiology Diagnostic Radiology | DX: Z12.31 Encounter for screening mammogram for malignant neoplasm of breast (principal) | CPT/HCPCS: 77063; 77067 ==

== ENCOUNTER 2025-09-26 06:55 | Outpatient (REF) | payer MEDICARE, SELFPAY ==
--- OUTSIDE RECORDS SUMMARY | 2025-09-26 06:57 | XMS_ITS | Encounter Summary ---
Author Organization [facility] Address [address] [place] [address] Phone Care Team Providers Care Home Health Provider Name Role Phone Chanda Ribeiro MD Primary Care Provider [phone] Encounter Details Date Type Department Care Team (Late st Contact Info) Description 07/13/2022 Documentation Only [facility] [address] [place] [address] Nader Renee MD Social History Tobacco Use Types Packs/Day Years Used Date Smoking Tobacco: Never Assessed Comments Unknown Sex and Gender Information Value Date Recorded Sex Assigned at Not on file Legal Sex Female 10:58 AM EDT Gender Identity Not on file Sexual Orientation Not on file documented as of this encounter Plan of Treatment Not on file documented as of this encounter Visit Diagnoses Not on filedocumented in this encounter Care Teams Home Health Provider Relationship Specialty Start Date End Date Chanda Ribeiro MD [address] [place] [id number] PCP - General Internal Medicine 04/13/22 documented as of this encounter
--- OUTSIDE RECORDS SUMMARY | 2025-09-26 06:57 | XMS_ITS | Clinical Summary ---
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 Name Role Phone Chanda Ribeiro MD Primary Care Provider [phone] Allergies Active Allergy Reactions Criticality Noted Date Comments Cats Claw (Uncaria Tomentosa) 2021 Other 07/13/2022 Medications albuterol HFA (PROVENTIL HFA;VENTOLIN HFA) 108 (90 Base) MCG/ACT inhaler Inhale 03/04/2014 Active rosuvastatin (CRESTOR) 5 MG tablet 06/30/2022 Active Melatonin 5 MG chewable tablet Chew Acti ve Garlic (GARLIQUE PO) Take by mouth Active Calcium Carbonate-Vitami n D (CALTRATE 600+D PO) Take by mouth Active multivitamin-iro c-ktafbjhk-qegkb acid (CENTRUM) chewable tablet Chew 1 tablet 1 (one) time each day Active Active Problems Problem Noted Date Diagnosed Date Essential (primary) hypertension 07/14/2022 Resolved Problems Problem Noted Date Diagnosed Date Resolved Date Acute asthma 07/13/2022 07/14/2022 Neck pain 07/13/2022 07/14/2022 Family History Relation Status Comments Father Mother Social History Tobacco Use Types Packs/Day Years Used Date Smoking Tobacco: Former Cigarettes Smokeless Tobacco: Never Tobacco Cessation:Counseling Given: Not Answered Alcohol Use Standard Drinks/Week Comments Yes 0 (1 standard drink = 0.6 oz pur e alcohol) Comments Unknown Sex and Gender Information Value Date Recorded Sex Assigned at Not on file Legal Sex Female 10:58 AM EDT Gender Identity Not on file Sexual Orientation Not on file Last Filed Vital Signs Vital Sign Reading Time Taken Comments Blood Pressure 200/110 07/14/2022 2:38 PM EDT Pulse 83 07/14/2022 2:38 PM EDT Temperature - - Respiratory Rate - - Oxygen Saturation 97% 07/14/2022 2:38 PM EDT Inhaled Oxygen Concentration - - Weight 70 kg (154 lb 6.4 oz) 07/14/2022 2:38 PM EDT Height 160 cm (5' 3 ) 07/14/2022 2:38 PM EDT Body Mass Index 27.35 07/14/2022 2:38 PM EDT Plan of Treatment Health Maintenance Due Date Last Done Comments Breast Cancer Screening 1955 Colorectal Cancer Screening: Annual FOBT 2004 Colorectal Cancer Screening: Colonoscopy 2004 Colorectal Cancer Screening: Sigmoidoscopy 2004 Pneumococcal Vaccine: 50+ Ye ars (1 of 1 - PCV) 2005 Influenza Vaccine (#1) 2025 Hepatitis B Vaccine Aged Out No longe r eligible based on patient's age to complete this topic Insurance [facility] Medicare Care Teams 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
--- OUTSIDE RECORDS SUMMARY | 2025-09-26 06:57 | XMS_ITS | Continuity of Care Document ---
Author Organization [facility] [address] [place] [address] Phone [phone] Social History Type Date Description Comments Sex Female Sex Unknown Medical Devices Description No Information Available Encounters Description No Information Available Assessments Description No Information Available Plan of Treatment No Information Available Functional Status Description No Information Available Mental Status Description No Information Available Referrals Description No Information Available
[2025-09-26 11:03] LABS: Alanine Aminotransferase 22 U/L (0-31); Anion Gap 11 (12-20); Aspartate Amino Transferase 30 U/L (5-31); Blood Urea Nitrogen 16 mg/dL (9-16); Calcium 9.6 mg/dL (8.4-10.2); Carbon Dioxide 27 mmol/L (22-29); Chloride 107 mmol/L (96-108); Cholesterol 190 mg/dL (<200); Estimated Glomerular Filt Rate > 60; HDL Cholesterol 56 mg/dL (>40); Potassium 4.8 mmol/L (3.3-5.1); Sodium 140 mmol/L (135-145); Triglycerides 86 mg/dL (<150)
== END 2025-09-26 06:56 | disposition home or self-care (01) ==
LOC: HO.HMGCLDS 06:55
PROVIDERS: PCP Internal Medicine; Visit Provider Internal Medicine
DX: M81.0 Age-related osteoporosis without current pathological fracture (principal); E78.5 Hyperlipidemia, unspecified; J45.20 Mild intermittent asthma, uncomplicated; R03.0 Elevated blood-pressure reading, without diagnosis of hypertension; Z28.21 Immunization not carried out because of patient refusal; Z78.0 Asymptomatic menopausal state
CPT/HCPCS: 36415; 80048; 80061; 82306; 84450; 84460

== ENCOUNTER 2025-10-07 09:40 | Outpatient (AMB) | payer MEDICARE, SELFPAY ==
--- OUTSIDE RECORDS SUMMARY | 2025-10-07 10:52 | XMS_ITS | Continuity of Care Document ---
Author Organization [facility] [address] [place] [address] Phone [phone] Social History Type Date Description Comments Sex Female Sex Unknown Medical Devices Description No Information Available Encounters Description No Information Available Assessments Description No Information Available Plan of Treatment No Information Available Functional Status Description No Information Available Mental Status Description No Information Available Referrals Description No Information Available
--- NOTE | 2025-10-07 11:17 | A.OFFPC_ITS ---
Vital Signs 10/07/25 11:23 Weight 159 lb BP 118/110 H Blood Pressure Location Lt brachial Position Sitting Respiration 16 Pulse 84 Pulse Source Pulse Oximeter Temp 98.2 F Temp Source Oral Pulse Oximetry (%) 98 Oxygen Delivery Method Room Air Intake Visit Reasons: Annual - see comments Predator Control Trapper Required: No Accompanied by: Self / Same As Patient Allergies No Known Allergies Allergy (Verified 10/02/24 10:21) Medication List - Last Reconciled 10/12/25 by Rani Ribeiro MD [id number]-isl [id number] [id number] er-ya-za-unit 1 tab PO BID famotidine 10 mg PO DAILY PRN fluticasone propion-salmeterol 100-50 mcg/dose (Wixela Inhub) 1 inh inhalation DAILY 3 months garlic 5 mg PO DAILY magnesium 250 mg PO DAILY kqyijjjr-vhe-gvml-FA-vit K-lut 8 mg iron-400 mcg-50 mcg (Centrum Silver Women) 1 tab PO DAILY rosuvastatin 5 mg PO DAILY Tobacco use date assessed: 10/07/25 Fall risk assessment: No Falls in past year Last assessed Fall Risk: 10/07/25 Dental Screening Dental Screen Date: 10/07/25 Did you have a dental visit in the last 12 months?: Yes Did you have a dental problem in the last 6 months where you did not have access to dental care?: No Was dental information given to patient?: Patient has dentist HPI Annual - see comments HPI Details The patient is a 70-year-old female presenting for physica exam. The patient has a history of Osteoporosis, with a prior T-score of -2.7 and - 2.5 on left femur and left femoral on bone density done in 2022. A recent bone density scan from February 2025 showed significant improvement, with a T-score of - 1.0 in the left femoral neck, which is now classified as osteopenia. She attributes this improvement to exercising regularly with weights four times a week for the past two years, progressing from 2-pound to 6-pound weights, and taking supplements including magnesium, K2, and calcium. She denies any history of vertebral fractures and has an unknown family history of osteoporosis as her mother young. Regarding hyperlipidemia, recent lab results from September 26 show triglycerides have improved to 86 from a previous level of 150. Her total cholesterol is 119 and her LDL has increased slightly from 105 to 117. The patient is on rosuvastatin and reports following a healthy diet with grilled foods, olive oil, and vegetables. The patient has a history of elevated blood pressure in the clinical setting, suggestive of white coat hypertension. Previous treatment for hypertension was stopped after it caused lightheadedness due to her blood pressure becoming very low. She reports her blood pressure is not bad at home and had a 24-hour blood pressure monitor test two or three years ago. She saw a mail rider for hypertension in 2021. The patient's asthma is reportedly well-controlled at home, and she has approximately one month's supply of her inhaler remaining. For health maintenance, her mammogram was fine, and her Cologuard test was negative. She is no longer getting Pap smears. She has no history of anemia. Recent labs show normal electrolytes, kidney function, blood glucose, liver function, and vitamin D levels. 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 Father Substance use disorder Daughter Diabetes Social History Housing: House Alcohol intake: current Patient Tobacco Use Status: Former Tobacco user e-Cigarette/Vaping Use: Never Used Current occupational status: retired Cognitive needs: No Hearing needs: No Vision needs: Yes Questionnaire PHQ-9 Over the last 2 weeks, how often have you been bothered by any of the following problems? 1. Little interest or pleasure in doing things: not at all 2. Feeling down, depressed, or hopeless: not at all 3. Trouble falling or staying asleep, or sleeping too much: not at all 4. Feeling tired or having little energy: not at all 5. Poor appetite or overeating: not at all 6. Feeling bad about yourself - or that you are a failure or have let yourself or your family down: not at all 7. Trouble concentrating on things, such as reading the newspaper or watching television: not at all 8. Moving or speaking so slowly that other people could have noticed. Or the opposite - being so fidgety or restless that you have been moving around a lot more than usual: not at all 9. Thoughts that you would be better off or of hurting yourself in some way: not at all Total score: 0 Depression Screening Interpretation: Negative Depression Screening Done: Yes 15711 - PHQ-9 Billing: Yes Source: Developed by Drs. Goran Bryan, Crissy Diggs, Golden Matthews and colleagues, with an educational em from [employer]. Thrive Questionnaire Date Thrive assessed: 10/02/24 I am a: Patient What is your living situation today?: I choose not to answer this question Within the past 12 months, did the food you bought not last and you didn't have the money to get more?: I choose not to answer this question Within the past 12 months, did you worry whether your food would run out before you got money to buy more?: I choose not to answer this question Do you have trouble paying for medicines?: I choose not to answer this question Do you have trouble getting transportation to medical appointments?: I choose not to answer this question Do you have trouble paying your heating and electricity bill?: I choose not to answer this question Do you have trouble taking care of your child, family member or friend?: I choose not to answer this question Do you have trouble with day-to-day activities such as bathing, preparing meals, shopping, managing finances, etc.?: I choose not to answer this question Are you currently unemployed and looking for a job?: I choose not to answer this question Are you interested in more education?: I choose not to answer this question Please select the resources that you would like help with: None Currently or been in a relationship where the following occur: I choose not to answer THRIVE Score: 0 AUDIT C Alcohol Use Questionnaire (AUDIT-C) 1. How often do you have a drink containing alcohol?: 2-4 times a month 2. How many drinks containing alcohol do you have on a typical day when you are drinking?: 3 or 4 3. How often do you have six or more drinks on one occasion?: Less than monthly Total Score: 4 KATHERINE-7 AMB Questionnaire KATHERINE-7 Date KATHERINE - 7 assessed: 10/07/25 Feeling nervous, anxious, or on edge: 0 = Not at all Not being able to stop or control worryin = Not at all Worrying too much about different things: 0 = Not at all Trouble relaxin = Not at all Being so restless that it is hard to sit still: 0 = Not at all Becoming easily annoyed or irritable: 0 = Not at all Feeling afraid as if something awful might happen: 0 = Not at all Total KATHERINE-7 score (0-4 normal; 5-9 mild; 10-14 moderate; 15-21 severe): 0 Source: Developed by Drs. Goran Bryan, Crissy Diggs, Golden Matthews and colleagues, with an educational em from [employer]. KATHERINE-7 Assessment Billing KATHERINE-7 Assessment Tool: KATHERINE-7 Assessment 76136 Review of Systems Const Denies body aches, Denies fatigue, Denies fever(s), Denies headache(s) and Denies weakness Eyes Details: Goes to [facility] in [place] Denies change in vision and Reports requires corrective lenses ENT Denies dizziness, Denies headache(s), Denies nasal congestion, Denies nasal discharge, Denies post nasal drip and Denies sore throat Card Denies chest pain, Denies lightheadedness, Denies palpitations and Denies dyspnea Resp Denies chest congestion, Denies cough, Denies dyspnea and Denies wheezing GI Denies abdominal pain, Denies change in bowel habits and Denies heartburn Denies urinary frequency, Denies dysuria and Denies urinary urgency Musc Denies back pain, Denies myalgias, Denies arthralgias, Denies joint swelling, Denies muscle weakness and Denies stiffness Skin/Breast Denies breast pain, Denies breast mass and Denies rash Neuro Denies dizziness, Denies headache(s) and Denies weakness Psych Denies abnormal sleep pattern, Denies anxiety, Denies change in appetite and Denies depression Endo Denies fatigue, Denies polydipsia, Denies polyuria and Denies palpitations Murtaza/Lymph Denies easy bruising Aller/Immun Denies seasonal rhinorrhea and Denies wheezing Physical exam (Primary Care) Vital Signs: Last Vital Signs Temp 98.2 F 10/07/25 11:23 Pulse 84 10/07/25 11:23 Resp 16 10/07/25 11:23 BP 118/110 H 10/07/25 11:23 Pulse Ox 98 10/07/25 11:23 Oxygen Delivery Method Room Air 10/07/25 11:23 Tobacco/Smoking Status: Tobacco use Status Tobacco use date assessed 10/07/25 10/07/25 11:25 Patient Tobacco Use Status Former Tobacco user 10/07/25 11:20 e-Cigarette/Vaping Use Never Used 10/07/25 11:20 PHQ-9: PHQ-9 Score PHQ-9: Total score 0 10/07/25 11:27 Depression Screening Interpretation: Negative Thrive Assessment: Date of Thrive Assessment Date Thrive assessed 10/02/24 10/07/25 11:20 Currently or been in a relationship where the following occur: I choose not to answer Const Other: Alert oriented x3, no acute distress noted, ambulatory with normal gait HENMT Ears: external ears normal, TM's normal bilaterally and EAC's normal General nose exam: Normal external nose present Face and sinus: Yes face symmetric Mouth: Normal oral and palatal mucosa present and moist mucous membranes Eyes General: appearance normal, both eyes and all related structures Conjunctivae: conjunctivae normal Pupils: Equal, round and reactive pupils present EOM: EOMs intact bilaterally Neck Other: Supple, no lymphadenopathy, thyroid gland nonpalpable Chest Breast/axilla palpation: normal palpation of the breasts Resp Auscultation: clear to auscultation bilaterally Cardio Other: S1-S2 present regular rate and rhythm GI Other: Normal bowel sounds, soft, nontender, no mass palpated General: Yes deferred Back/Spine/Pelvis Back: No back tenderness Skin General skin exam: no rashes or lesions noted Neuro General: gait normal, moves all extremities, Normal light touch and pain sensation, no focal motor deficits and CN's II-XI intact bilaterally Cranial nerves: Yes Equal, round and reactive pupils present Extrem General: Yes full ROM, Yes no joint enlargement, Yes no clubbing, cyanosis or edema and Yes normal gait Psych Appearance: grossly normal and well kempt Mental Status: mental status grossly normal Speech and movement: Normal speech and movement present Affect: normal affect Results Reviewed Results Reviewed: Name: Natalia Meeks Age/Sex: 70/F : 1955 Unit#: [id number] Attend Dr: Rani Ribeiro MD Re09/26/25 Status: DEP REF Location: [facility] Disch: SPEC : [id number] KOSTAS: 09/26/25 STATUS: COMP REQ : [id number] RECD: 09/26/[address]: Rani Ribeiro MD COMP: 09/26/25 ENTERED: 09/26/[address]: ORDERED: Met Prof Fast, AST, ALT, Lipid Panel, Vitamin D 25-OH Test Result Flag Reference Sodium 140 135-145 mmol/L Potassium 4.8 3.3-5.1 mmol/L CL 107 96-108 mmol/L CO2 27 22-29 mmol/L Gap 11 L 12-20 BUN 16 9-16 mg/dL Creat 0.68 0.5-1.4 mg/dL eGFR > 60 Chronic Kidney Disease: Estimated GFR < 60 mL/min/1.73m2 Severe Kidney Disease: Estimated GFR < 15 mL/min/1.73m2 FBS 92 60-99 mg/dL CA 9.6 8.4-10.2 mg/dL AST (GOT) 30 5-31 U/L ALT (GPT) 22 0-31 U/L Triglyceride 86 <150 mg/dL Desirable Triglyceride: less than 150 mg/dL Borderline High Triglyceride 150-199 mg/dL High Triglyceride: 200-499 mg/dL Very High Triglyceride: greater than or equal to 5OO mg/dL Cholesterol 190 <200 mg/dL Desirable Cholesterol: less than 200 mg/dL Borderline High Cholesterol: 200-239 mg/dL High Cholesterol: greater than 239 mg/dL LDL Calculated 117 H <100 mg/dL Desirable LDL: less than 100 mg/dL Near Optimal/Above Optimal LDL: 110-129 mg/dL Borderline High LDL: 130-159 mg/dL High LDL: 160-189 mg/dL Very High LDL: greater than or equal to 190 mg/dL HDL 56 >40 mg/dL Desirable HDL: greater than 40 mg/dL Note: This HDL assay may give artificially low results in patients with liver disease. Vitamin D 25-OH 81.9 >30 ng/mL Health Based Reference Values* < 20 ng/mL Deficient 20-30 ng/mL Insufficient > 30 ng/mL Sufficient *Dyan LYNCH. N Engl J Med. 2007;357:266-280 There is no well-established upper level of normal vitamin D levels. Some laboratories use 50 ng/mL as an upper limit of normal. However, toxicity is patient-dependent and may occur at any level. Careful correlation with the patient's presentation is necessary and, if there is concern for vitamin D toxicity, treatment should be considered irrespective of the serum level. Care must be taken in interpreting Vitamin D results from different laboratories and methodologies. Published data demonstrated that results from patients undergoing hemodialysis may show a negative bias when tested with various automated 25-OH vitamin D assays when compared to LC-MS/MS. When testing samples from patients whose predominant form of Vitamin D is Vitamin D2, such as patients receiving Vitamin D2 supplementation, results that are subtherapeutic should be confirmed with another method such as LC-MS/MS. Coding Level of Care Code Est Pt Prev Care 40-64y(71688) Diagnoses Annual visit for general adult medical examination with abnormal findings Z00.01 Osteopenia of multiple sites M85.89 White coat syndrome without diagnosis of hypertension R03.0 Dyslipidemia E78.5 Mild intermittent asthma without complication J45.20 Asthma complication type: uncomplicated Additional Codes KATHERINE-7 Assessment Billing - KATHERINE-7 Assessment Tool: KATHERINE-7 Assessment 17833 ([id number]) PHQ-9 - 56039 - PHQ-9 Billing: Yes ([id number]) Assessment & Plan Assessment & Plan (1) Annual visit for general adult medical examination with abnormal findings: Code(s): Z00.01 - Encounter for general adult medical examination with abnormal findings Plan: The patient is up to date on her mammogram, which was normal. An order will be placed for her next annual mammogram. Her last Cologuard was negative. An order will be placed for her next Cologuard test for next year. The patient is due for a high-dose flu shot, which is recommended. The shingles vaccine was also discussed. If she chooses to receive it, she was advised to ensure it is properly documented in the [place] Vaccine state registry. (2) Osteopenia of multiple sites: Code(s): M85.89 - Other specified disorders of bone density and structure, multiple sites Category: Medical Plan: Marked improvement in her bone density as seen on latest bone density scan last February 2025. Now with osteopenia in left femoral neck and left femur. Continue with adherence to healthy eating habits, getting regular calcium and vitamin-D 3 supplements and continue with regular weight-bearing exercise. Will repeat another bone density in 2 years (3) White coat syndrome without diagnosis of hypertension: Comment: seen by Dr Renee Code(s): R03.0 - Elevated blood-pressure reading, without diagnosis of hypertension Category: Medical Plan: The patient's blood pressure was elevated in the office at 118/110 mmHg. Given her history of normal blood pressure at home and symptomatic hypotension with prior medication, this is consistent with white coat hypertension. The blood pressure will be rechecked. The patient will continue to monitor her blood pressure at home. A follow-up with a nurse for blood pressure checks can be arranged as needed. (4) Dyslipidemia: Code(s): E78.5 - Hyperlipidemia, unspecified Category: Medical Plan: Latest fasting labs show a significant improvement in triglycerides to 86, though the LDL is slightly elevated at 117. The patient is on rosuvastatin. Continue the current dose of rosuvastatin, for which a full year of refills will be provided. Advised to continue her healthy diet. A follow-up cholesterol test is planned in six months. (5) Mild intermittent asthma: Code(s): J45.20 - Mild intermittent asthma, uncomplicated Category: Medical Qualifiers: Asthma complication type: uncomplicated Qualified Code(s): J45.20 - Mild intermittent asthma, uncomplicated Plan: The patient's asthma is stable and well-controlled at home. She has an adequate supply of her inhaler. Continue current management. Orders: Orders Lipid Panel 1 Year E78.5 - Hyperlipidemia, unspecified, J45.20 - Mild intermittent asthma, uncomplicated, R03.0 - Elevated blood-pressure reading, without diagnosis of hypertension, Z13.1 - Encounter for screening for diabetes mellitus, Z78.0 - Asymptomatic menopausal state Basic Metabolic Panel Fasting 1 Year E78.5 - Hyperlipidemia, unspecified, J45.20 - Mild intermittent asthma, uncomplicated, R03.0 - Elevated blood- pressure reading, without diagnosis of hypertension, Z13.1 - Encounter for screening for diabetes mellitus, Z78.0 - Asymptomatic menopausal state Aspartate Amino Transferase 1 Year E78.5 - Hyperlipidemia, unspecified, J45.20 - Mild intermittent asthma, uncomplicated, R03.0 - Elevated blood-pressure reading, without diagnosis of hypertension, Z13.1 - Encounter for screening for diabetes mellitus, Z78.0 - Asymptomatic menopausal state Alanine Aminotransferase 1 Year E78.5 - Hyperlipidemia, unspecified, J45.20 - Mild intermittent asthma, uncomplicated, R03.0 - Elevated blood-pressure reading, without diagnosis of hypertension, Z13.1 - Encounter for screening for diabetes mellitus, Z78.0 - Asymptomatic menopausal state Vitamin D 25-OH Total 1 Year E78.5 - Hyperlipidemia, unspecified, J45.20 - Mild intermittent asthma, uncomplicated, R03.0 - Elevated blood-pressure reading, without diagnosis of hypertension, Z13.1 - Encounter for screening for diabetes mellitus, Z78.0 - Asymptomatic menopausal state Hemoglobin and Hematocrit 1 Year E78.5 - Hyperlipidemia, unspecified, J45.20 - Mild intermittent asthma, uncomplicated, R03.0 - Elevated blood-pressure r eading, without diagnosis of hypertension, Z13.1 - Encounter for screening for diabetes mellitus, Z78.0 - Asymptomatic menopausal state Medications: Refilled rosuvastatin 5 mg PO DAILY 90 tabs 4RF
[2025-10-07 11:23] VITALS: BP 118/110; PULSE 84; RESP 16; TEMP 36.8; O2SAT 98
== END 2025-10-07 11:46 | disposition home or self-care (01) ==
LOC: HO.HMCC 09:41
PROVIDERS: PCP Internal Medicine; Visit Provider Internal Medicine
DX: Z00.01 Encounter for general adult medical examination with abnormal findings (principal); M85.89 Other specified disorders of bone density and structure, multiple sites; R03.0 Elevated blood-pressure reading, without diagnosis of hypertension; E78.5 Hyperlipidemia, unspecified; J45.20 Mild intermittent asthma, uncomplicated

== ENCOUNTER → 2025-10-07 09:40 | Outpatient (BNVA) | payer MEDICARE, SELFPAY | PROVIDERS: PCP Internal Medicine; Visit Provider Internal Medicine | DX: Z00.01 Encounter for general adult medical examination with abnormal findings (principal); M81.0 Age-related osteoporosis without current pathological fracture; E78.5 Hyperlipidemia, unspecified; R03.0 Elevated blood-pressure reading, without diagnosis of hypertension; J45.909 Unspecified asthma, uncomplicated; M85.89 Other specified disorders of bone density and structure, multiple sites; J45.20 Mild intermittent asthma, uncomplicated | CPT/HCPCS: 96127; 99397 ==